=== PATIENT | male | born 1945 | race Caucasian/White ===

== ENCOUNTER → 2017-06-01 09:39 | Outpatient (CLI) | payer MEDICARE, SELFPAY ==
[2017-06-01 12:39] LABS: Hemoglobin A1c 6.2 % (4.2-6.3)
[2017-06-01 12:51] LABS: AST(SGOT) 14 U/L (15-37); Alanine Aminotransfer ALT/SGPT 28 U/L (16-61); Albumin, Serum 3.7 g/dL (3.2-5.0); Alkaline Phosphatase 67 U/L (45-117); Anion Gap 8 (5-15); BUN 24 mg/dL (7-18); BUN/Creat Ratio 22.9 RATIO (10-20); Bilirubin, Direct 0.09 mg/dL (0.00-0.30); Calcium,Total 9.1 mg/dL (8.5-10.1); Chloride 100 mmol/L (98-107); Cholesterol 153 mg/dL (200); Creatinine, Serum 1.05 mg/dL (0.70-1.30); EST Glomerular Filtration Rate 74 mL/min (>60); Est Glom Filt Rate - Afr Amer 90 mL/min (>60); Globulin 3.3 g/dL (2.2-4.2); Glucose 96 mg/dL (74-106); High Density Lipoprotein 35 mg/dL; Potassium 5.6 mmol/L (3.5-5.1); Sodium Level 132 mmol/L (136-145); Triglycerides 124 mg/dL; Very Low Density Lipoprotein 25 mg/dL (5-40)
[2017-06-01 13:16] LABS: Microalbumin,Random Urine 6.3 mg/L (NO RANGE EST.); Microalbumin:Creatinine Ratio 8.7 mg/g CRE (<30 mg/g CRE)
== END ==
PROVIDERS: Family Provider Family Medicine; PCP Family Medicine; Visit Provider Family Medicine
DX: E11.9 Type 2 diabetes mellitus without complications (principal); I10 Essential (primary) hypertension
CPT/HCPCS: 36415; 80048; 80061; 80076; 82043; 82570; 83036

== ENCOUNTER → 2017-06-11 10:03 | Outpatient (CLI) | payer MEDICARE, SELFPAY ==
[2017-06-11 10:52] LABS: Anion Gap 8 (5-15); BUN 15 mg/dL (7-18); BUN/Creat Ratio 17.7 RATIO (10-20); Calcium,Total 8.7 mg/dL (8.5-10.1); Chloride 104 mmol/L (98-107); Creatinine, Serum 0.85 mg/dL (0.70-1.30); EST Glomerular Filtration Rate 95 mL/min (>60); Est Glom Filt Rate - Afr Amer 115 mL/min (>60); Glucose 94 mg/dL (74-106); Potassium 4.3 mmol/L (3.5-5.1); Sodium Level 135 mmol/L (136-145)
== END ==
PROVIDERS: Family Provider Family Medicine; PCP Family Medicine; Visit Provider Family Medicine
DX: E87.5 Hyperkalemia (principal)
CPT/HCPCS: 36415; 80048

== ENCOUNTER → 2017-06-29 06:01 | Outpatient (CLI) | payer MEDICARE, SELFPAY ==
[2017-06-29 08:22] LABS: ALB/GLOB Ratio 1.1 RATIO (0.9-2.4); AST(SGOT) 16 U/L (15-37); Alanine Aminotransfer ALT/SGPT 23 U/L (16-61); Albumin, Serum 3.6 g/dL (3.2-5.0); Alkaline Phosphatase 63 U/L (45-117); Anion Gap 7 (5-15); BUN 19 mg/dL (7-18); BUN/Creat Ratio 20.3 RATIO (10-20); Calcium,Total 9.2 mg/dL (8.5-10.1); Chloride 106 mmol/L (98-107); Cholesterol 163 mg/dL (200); Creatinine, Serum 0.94 mg/dL (0.70-1.30); EST Glomerular Filtration Rate 85 mL/min (>60); Est Glom Filt Rate - Afr Amer 103 mL/min (>60); Globulin 3.3 g/dL (2.2-4.2); Glucose 109 mg/dL (74-106); High Density Lipoprotein 37 mg/dL; Potassium 4.6 mmol/L (3.5-5.1); Protein, Total 6.9 g/dL (6.4-8.2); Sodium Level 136 mmol/L (136-145); Thyroid Stim Hormone (TSH) 2.07 uIU/mL (0.358-3.74); Triglycerides 87 mg/dL; Very Low Density Lipoprotein 17 mg/dL (5-40)
[2017-06-29 08:37] LABS: Microalbumin,Random Urine < 5.0 mg/L (NO RANGE EST.)
[2017-06-29 08:40] LABS: Hemoglobin A1c 6.4 % (4.2-6.3)
== END ==
PROVIDERS: Family Provider Family Medicine; PCP Family Medicine; Visit Provider Internal Medicine Endocrinology, Diabetes & Metabolism
DX: E11.9 Type 2 diabetes mellitus without complications (principal); E26.9 Hyperaldosteronism, unspecified
CPT/HCPCS: 36415; 80053; 80061; 82043; 82570; 83036; 84443

== ENCOUNTER 2017-07-07 02:11 | Observation (INO) | payer MEDICARE, SELFPAY ==
[2017-07-07] VITALS (13 sets, daily range): BP systolic 122–186; BP diastolic 58–87; PULSE 54–64; RESP 12–19; TEMP 36.4–36.6; O2SAT 97–100; BMI 31.8; BMI 31.6
--- NOTE | 2017-07-07 02:39 | EKG12_ITS ---
Test Reason : REPEAT Blood Pressure : / mmHG Vent. Rate : 055 BPM Atrial Rate : 055 BPM P-R Int : 168 ms QRS Dur : 106 ms QT Int : 424 ms P-R-T Axes : 070 -12 046 degrees QTc Int : 405 ms Sinus bradycardia Septal infarct , age undetermined Abnormal ECG Confirmed by ERROL GARAY, EYAL ([id number]), book editor STEVE PLATA ([id number]) on 07/08/2017 3:34:11 PM Referred By: Romana Bartholomew Confirmed By:EYAL NORTON MD
--- NOTE | 2017-07-07 02:39 | RAD_ITS ---
STUDY: X-RAY CHEST REASON FOR EXAM: Male, 71 years old. Pain in the right rib area TECHNIQUE: One view COMPARISON: None. FINDINGS: The lungs are clear and expanded. There is no demonstrated pleural abnormality. Normal size heart. Normal mediastinum and kayla. Normal visualized pulmonary arteries. Normal visualized aortic arch and descending thoracic aorta. Marked degenerative changes of the thoracic spine Normal visualized ribs, clavicles, and shoulders. There is no demonstrated abnormality of the visualized soft tissue structures of the upper abdomen. RAD/Chest 1 View (Portable) IMPRESSION: No acute findings in the lungs. Mild degenerative changes of the thoracic spine Electronically Signed: Figueroa Willard, at 3:38 EDT Tel , Service support ,
[2017-07-07 03:14] LABS: Absolute Lymphocyte Count 2.25 X10^3/ul (0.83-4.51); Absolute Neutrophil Count 5.3 X10^3/uL (2.0-7.7); Basophil# 0.02 X10^3/uL; Basophil% 0.2 % (0-1); Eosinophil# 0.35 X10^3/uL; Hematocrit 34.8 % (40-54); Hemoglobin 11.7 g/dl (13.0-16.5); Lymphocyte # 2.25 X10^3/ul (4.0); Lymphocyte % 25.6 % (19-41); Mean Corp Hgb Conc 33.6 g/gl (32-36); Mean Corpuscular Hgb 29.7 pg (27.0-32.0); Mean Corpuscular Volume 88.3 fL (80-94); Mean Platelet Vol. 9.1 fl (6.2-12.0); Monocyte% 9.1 % (0-10); Neutrophil # 5.34 X10^3/uL (2.7-7.7); Neutrophil % 60.9 % (47-70); Platelet Count 230 K/mm3 (150-450); RBC Distribution Width CV 13.2 % (11.6-14.6); RBC Distribution Width SD 41.4 fl (35.1-43.9); Red Blood Count 3.94 M/mm3 (4.6-6.2); White Blood Count 8.8 K/mm3 (4.4-11.0)
[2017-07-07 03:15] LABS: POSITIVE COUNT NO; POSITIVE DIFFERENTIAL NO; POSITIVE MORPHOLOGY NO
--- NOTE | 2017-07-07 03:34 | EKG12_ITS ---
Test Reason : CP Blood Pressure : / mmHG Vent. Rate : 058 BPM Atrial Rate : 058 BPM P-R Int : 184 ms QRS Dur : 094 ms QT Int : 400 ms P-R-T Axes : 070 -05 044 degrees QTc Int : 392 ms Sinus bradycardia Septal infarct , age undetermined Abnormal ECG Confirmed by ERROL GARAY, EYAL ([id number]), editorial clerk STEVE PLATA ([id number]) on 07/08/2017 3:34:59 PM Referred By: Romana Bartholomew Confirmed By:EYAL NORTON MD
[2017-07-07 03:39] LABS: Anion Gap 8 (5-15); BUN 28 mg/dL (7-18); BUN/Creat Ratio 27.2 RATIO (10-20); Calcium,Total 8.3 mg/dL (8.5-10.1); Chloride 105 mmol/L (98-107); Creatinine, Serum 1.03 mg/dL (0.70-1.30); EST Glomerular Filtration Rate 76 mL/min (>60); Est Glom Filt Rate - Afr Amer 92 mL/min (>60); Estimated Creatinine Clearance 63.28 ml/min; Glucose 97 mg/dL (74-106); Potassium 4.2 mmol/L (3.5-5.1); Sodium Level 138 mmol/L (136-145)
--- NOTE | 2017-07-07 04:31 | PCM.HP.STD ---
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 He states he was working out with weights doing leg press exercise with 205lbs when he developed chest pain. This unlike his recent shortness of breath and chest discomfort while on the treadmill for five minutes did not relent with rest. By 1:00 am the pain was significantly worse 8/10 non radiating substernal pain/pressure. He reports having had a negative stress test prior to gastric bypass surgery 4-5 years ago. He had two stents placed in the LAD in 2003. He will be admitted for further cardiac evaluation. He will be NPO pending heart catheterization. 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) Allergies No Known Allergies Allergy (Verified 02/12/15 07:41) Home Medications: Ambulatory Orders Medication Instructions Recorded Carvedilol [Coreg] 12.5 mg PO BID 04/18/13 Metformin [Metformin HCl] 500 mg PO BID 04/18/13 Multivitamins,Ther W-Minerals 1 tab PO Q4H 04/18/13 [Multivitamin With Minerals] Omeprazole [Prilosec] 40 mg PO DAILY 11/11/13 Glimepiride [Amaryl] 0.5 mg PO DAILY 11/10/14 aspirin 81 mg tablet,delayed 81 mg PO QDAY 03/30/17 release losartan 100 1 tab PO QDAY 03/30/17 mg-hydrochlorothiazide 12.5 mg tablet spironolactone 50 mg tablet 50 mg PO BID 03/30/17 Surgical History: herniorrhaphy, total knee arthroplasty, tonsillectomy, - - Carpal tunnel surgery, cystoscopy, TURP Psychiatric History: No pertinent psych hx Smoking Status: Former smoker - *Family History Maternal History Items: Cancer, Diabetes, Hypertension Paternal History Items: Diabetes, Hypertension Sibling History Items: No pertinent history Review of Systems Constitutional: Denies: Chills, Fever, Weight Change HEENT: Denies: Head Aches, Sinus Congestion, Sinus Drainage Cardiovascular: Reports: Chest Pain, Chest Pressure, Chest Tightness. Denies: Palpitations Respiratory: Denies: Cough, Shortness of breath at rest, Sputum production Gastrointestinal: Denies: Abdominal Pain, Nausea, Vomiting Genitourinary: Denies: Dysuria Musculoskeletal: Denies: Joint Pain, Joint Tenderness Skin: Denies: Rash, Wounds Neurological: Denies: Numbness, Tingling, Focal weakness Psychiatric: Denies: Anxiety, Depression, Homicidal Ideations, Suicidal Ideations Hematologic/ Lymphatic: Denies: Easy Bruising, Easy Bleeding VTE Information - Inpt Only VTE Present on Admission: No VTE Mechan Device Prophylaxis: None VTE Pharm Prophylaxis ordered?: Yes Patient Problems: Active and Suspected Problems (Last Updated 03/30/17 @ 12:18 by LINDA Ho) Chest pain (Acute) - Physical Exam General: Alert, Oriented x3, Cooperative HEENT: Atraumatic, Normocephalic Neck: Supple Lungs: Clear to auscultation, Normal air movement, No rhonchi, No wheeze, No rales Cardiovascular: Normal S1, Normal S2, No murmurs, Bradycardic Abdomen: Bowel Sounds Present, Soft, Non Tender, Obese Extremities: No edema, Capillary Refill Less than 3 Seconds Skin: No rashes Musculoskeletal: No Tenderness to Palpation of Joints or Extremities Neurological: Neuro grossly intact Psych/Mental Status: Normal Affect, Appropriate Vital Signs Temp Pulse Resp BP Pulse Ox 97.5 F L 64 15 124/64 H 97 07/07/17 02:13 07/07/17 03:23 07/07/17 02:13 07/07/17 03:23 07/07/17 03:01 Oxygen Delivery Method Room Air Weight: 203 lb 7.787 oz Body Mass Index (BMI) 31.8 Finger Stick Blood Glucose 156 Laboratory Tests Past 24 Hrs 07/07/17 07/07/17 03:05 03:05 WBC 8.8 RBC 3.94 L Hgb 11.7 L Hct 34.8 L MCV 88.3 MCH 29.7 MCHC 33.6 RDW 13.2 RDW Differential 41.4 Plt Count 230 MPV 9.1 Immature Gran % (Auto) 0.200 Neut % (Auto) 60.9 Lymph % (Auto) 25.6 [place] % (Auto) 9.1 Eos % (Auto) 4.0 Baso % (Auto) 0.2 Absolute Neuts (auto) 5.3 Absolute Lymphs (auto) 2.25 Total Counted Not Reportable Sodium 138 Potassium 4.2 Chloride 105 Carbon Dioxide 25.0 Anion Gap 8 BUN 28 H Creatinine 1.03 Estim Creat Clear Calc 63.28 Est GFR (MDRD) Af Amer 92 Est GFR (MDRD) Non-Af 76 BUN/Creatinine Ratio 27.2 H Glucose 97 Calcium 8.3 L Troponin I < 0.02 Assessment/Plan Active and Suspected Problems (Last Updated 03/30/17 @ 12:18 by LINDA Ho) Chest pain (Acute) Chronic Problems (Last Updated 03/30/17 @ 12:18 by LINDA oH) Hyperlipidemia (Chronic) HTN (hypertension), benign (Chronic) CAD (coronary artery disease), [place]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
--- NOTE | 2017-07-07 04:41 | ED.VISSUMM ---
- ER Visit Summary Date of Service: 07/07/17 Chief Complaint: Chest pain History of Present Illness: The patient is a 71 M patient developed gnawing chest pain since around suppertime. Continuous. 7 out of 10. States initially right side went to the left. Pain to the back. No numbness in the arms jaw. No nausea. Mild dyspnea. States he has have exertional dyspnea over last 2 months. He works out 3 times a week. States he can go on the treadmill up to 5 minutes before coming significant short of breath needing to stop. Symptoms resolved at that time. History of LAD stent in 2003?2. He is followed by Dr. Capps. No recent formal stress test. History diabetes, hypertension. Not on cholesterol medications. Remote tobacco. Family history of dad with [place] less than 55. No PE risk factors. Physical Examination: General: Alert and oriented ?3, no acute distress HEENT: Normocephalic, atraumatic. Moist mucosa membranes Neck: supple, nontender. Cardiovascular: Regular rate and rhythm, no murmurs Respiratory: Normal breath sounds, symmetric, no distress Abdomen: Soft, nontender, nondistended Extremities: Nontender, no edema, pulses intact ?4 Neuro: no focal neurological deficits. Test Results: EKG: Sinus rate of 58, no ST or T-wave changes. EKG #2 unchanged. Chest x-ray negative. Troponin negative. Emergency Department Course and Treatment: Patient took aspirin at home prior to arrival. Due to symptoms given 2 nitro, per nursing symptoms worsen. Repeat EKG is unchanged. Given morphine 4 mg. Cardiac workup was negative. History reporting on treadmill with symptoms increasing after 5 minutes concerning for anginal symptoms. No recent stress test. Heart scores a 4. SOHA scores of 4. Patient history spoke with hospitalist, Dr. Ayon for evaluation and admission. Treatment Plan: [] Disposition: Admission Impression: 1. Chest pain 2. Angina This note was generated with [employer] dictation software. It may contain incorrect words, spelling, and punctuation that were not noted in review of the chart prior to signing ED Disposition - Plan for ED Patient: Disposition: Acute Care Hospital [facility] Chief Complaint: Chest Pain Diagnosis: Angina effort, Chest pain Referrals: Hilda Angulo MD [Primary Care Provider] -
--- NOTE | 2017-07-07 04:42 | HP.PCM_ITS ---
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 He states he was working out with weights doing leg press exercise with 205lbs when he developed chest pain. This unlike his recent shortness of breath and chest discomfort while on the treadmill for five minutes did not relent with rest. By 1:00 am the pain was significantly worse 8/10 non radiating substernal pain/pressure. He reports having had a negative stress test prior to gastric bypass surgery 4-5 years ago. He had two stents placed in the LAD in 2003. He will be admitted for further cardiac evaluation. He will be NPO pending heart catheterization. 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) Allergies No Known Allergies Allergy (Verified 02/12/15 07:41) Home Medications: Ambulatory Orders Medication Instructions Recorded Carvedilol [Coreg] 12.5 mg PO BID 04/18/13 Metformin [Metformin HCl] 500 mg PO BID 04/18/13 Multivitamins,Ther W-Minerals 1 tab PO Q4H 04/18/13 [Multivitamin With Minerals] Omeprazole [Prilosec] 40 mg PO DAILY 11/11/13 Glimepiride [Amaryl] 0.5 mg PO DAILY 11/10/14 aspirin 81 mg tablet,delayed 81 mg PO QDAY 03/30/17 release losartan 100 1 tab PO QDAY 03/30/17 mg-hydrochlorothiazide 12.5 mg tablet spironolactone 50 mg tablet 50 mg PO BID 03/30/17 Surgical History: herniorrhaphy, total knee arthroplasty, tonsillectomy, - - Carpal tunnel surgery, cystoscopy, TURP Psychiatric History: No pertinent psych hx Smoking Status: Former smoker - *Family History Maternal History Items: Cancer, Diabetes, Hypertension Paternal History Items: Diabetes, Hypertension Sibling History Items: No pertinent history Review of Systems Constitutional: Denies: Chills, Fever, Weight Change HEENT: Denies: Head Aches, Sinus Congestion, Sinus Drainage Cardiovascular: Reports: Chest Pain, Chest Pressure, Chest Tightness. Denies: Palpitations Respiratory: Denies: Cough, Shortness of breath at rest, Sputum production Gastrointestinal: Denies: Abdominal Pain, Nausea, Vomiting Genitourinary: Denies: Dysuria Musculoskeletal: Denies: Joint Pain, Joint Tenderness Skin: Denies: Rash, Wounds Neurological: Denies: Numbness, Tingling, Focal weakness Psychiatric: Denies: Anxiety, Depression, Homicidal Ideations, Suicidal Ideations Hematologic/ Lymphatic: Denies: Easy Bruising, Easy Bleeding VTE Information - Inpt Only VTE Present on Admission: No VTE Mechan Device Prophylaxis: None VTE Pharm Prophylaxis ordered?: Yes Patient Problems: Active and Suspected Problems (Last Updated 03/30/17 @ 12:18 by LINDA Ho) Chest pain (Acute) - Physical Exam General: Alert, Oriented x3, Cooperative HEENT: Atraumatic, Normocephalic Neck: Supple Lungs: Clear to auscultation, Normal air movement, No rhonchi, No wheeze, No rales Cardiovascular: Normal S1, Normal S2, No murmurs, Bradycardic Abdomen: Bowel Sounds Present, Soft, Non Tender, Obese Extremities: No edema, Capillary Refill Less than 3 Seconds Skin: No rashes Musculoskeletal: No Tenderness to Palpation of Joints or Extremities Neurological: Neuro grossly intact Psych/Mental Status: Normal Affect, Appropriate Vital Signs Temp Pulse Resp BP Pulse Ox 97.5 F L 64 15 124/64 H 97 07/07/17 02:13 07/07/17 03:23 07/07/17 02:13 07/07/17 03:23 07/07/17 03:01 Oxygen Delivery Method Room Air Weight: 203 lb 7.787 oz Body Mass Index (BMI) 31.8 Finger Stick Blood Glucose 156 Laboratory Tests Past 24 Hrs 07/07/17 07/07/17 03:05 03:05 WBC 8.8 RBC 3.94 L Hgb 11.7 L Hct 34.8 L MCV 88.3 MCH 29.7 MCHC 33.6 RDW 13.2 RDW Differential 41.4 Plt Count 230 MPV 9.1 Immature Gran % (Auto) 0.200 Neut % (Auto) 60.9 Lymph % (Auto) 25.6 [place] % (Auto) 9.1 Eos % (Auto) 4.0 Baso % (Auto) 0.2 Absolute Neuts (auto) 5.3 Absolute Lymphs (auto) 2.25 Total Counted Not Reportable Sodium 138 Potassium 4.2 Chloride 105 Carbon Dioxide 25.0 Anion Gap 8 BUN 28 H Creatinine 1.03 Estim Creat Clear Calc 63.28 Est GFR (MDRD) Af Amer 92 Est GFR (MDRD) Non-Af 76 BUN/Creatinine Ratio 27.2 H Glucose 97 Calcium 8.3 L Troponin I < 0.02 Assessment/Plan Active and Suspected Problems (Last Updated 03/30/17 @ 12:18 by LINDA Ho) Chest pain (Acute) Chronic Problems (Last Updated 03/30/17 @ 12:18 by LINDA Ho) Hyperlipidemia (Chronic) HTN (hypertension), benign (Chronic) CAD (coronary artery disease), [place]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
--- NOTE | 2017-07-07 04:44 | ED.DCSUM_ITS ---
- ER Visit Summary Date of Service: 07/07/17 Chief Complaint: Chest pain History of Present Illness: The patient is a 71 M patient developed gnawing chest pain since around suppertime. Continuous. 7 out of 10. States initially right side went to the left. Pain to the back. No numbness in the arms jaw. No nausea. Mild dyspnea. States he has have exertional dyspnea over last 2 months. He works out 3 times a week. States he can go on the treadmill up to 5 minutes before coming significant short of breath needing to stop. Symptoms resolved at that time. History of LAD stent in 2003?2. He is followed by Dr. Capps. No recent formal stress test. History diabetes, hypertension. Not on cholesterol medications. Remote tobacco. Family history of dad with [place] less than 55. No PE risk factors. Physical Examination: General: Alert and oriented ?3, no acute distress HEENT: Normocephalic, atraumatic. Moist mucosa membranes Neck: supple, nontender. Cardiovascular: Regular rate and rhythm, no murmurs Respiratory: Normal breath sounds, symmetric, no distress Abdomen: Soft, nontender, nondistended Extremities: Nontender, no edema, pulses intact ?4 Neuro: no focal neurological deficits. Test Results: EKG: Sinus rate of 58, no ST or T-wave changes. EKG #2 unchanged. Chest x-ray negative. Troponin negative. Emergency Department Course and Treatment: Patient took aspirin at home prior to arrival. Due to symptoms given 2 nitro, per nursing symptoms worsen. Repeat EKG is unchanged. Given morphine 4 mg. Cardiac workup was negative. History reporting on treadmill with symptoms increasing after 5 minutes concerning for anginal symptoms. No recent stress test. Heart scores a 4. SOHA scores of 4. Patient history spoke with hospitalist, Dr. Ayon for evaluation and admission. Treatment Plan: [] Disposition: Admission Impression: 1. Chest pain 2. Angina This note was generated with [employer] dictation software. It may contain incorrect words, spelling, and punctuation that were not noted in review of the chart prior to signing ED Disposition - Plan for ED Patient: Disposition: Acute Care Hospital [facility] Chief Complaint: Chest Pain Diagnosis: Angina effort, Chest pain Referrals: Hilda Angulo MD [Primary Care Provider] -
[2017-07-07] MEDS: Aspirin E.C. 81 MG Tablet PO (06:38)
[2017-07-07] MEDS: Clopidogrel Bisulfate 300 MG Tablet PO (06:38)
[2017-07-07 06:56] LABS: Bedside Glucose 145 mg/dL (70-110)
[2017-07-07 07:07] LABS: Absolute Lymphocyte Count 1.57 X10^3/ul (0.83-4.51); Absolute Neutrophil Count 6.9 X10^3/uL (2.0-7.7); Basophil# 0.02 X10^3/uL; Basophil% 0.2 % (0-1); Eosinophil# 0.13 X10^3/uL; Eosinophils% 1.4 % (0-5); Hematocrit 37.1 % (40-54); Hemoglobin 12.4 g/dl (13.0-16.5); Lymphocyte # 1.57 X10^3/ul (4.0); Lymphocyte % 17.1 % (19-41); Mean Corp Hgb Conc 33.4 g/gl (32-36); Mean Corpuscular Hgb 29.5 pg (27.0-32.0); Mean Corpuscular Volume 88.3 fL (80-94); Mean Platelet Vol. 9.7 fl (6.2-12.0); Monocyte# 0.58 X10^3/uL; Monocyte% 6.3 % (0-10); Neutrophil # 6.86 X10^3/uL (2.7-7.7); Neutrophil % 74.9 % (47-70); Platelet Count 236 K/mm3 (150-450); RBC Distribution Width CV 13.3 % (11.6-14.6); RBC Distribution Width SD 42.4 fl (35.1-43.9); White Blood Count 9.2 K/mm3 (4.4-11.0)
[2017-07-07 07:11] LABS: POSITIVE COUNT NO; POSITIVE DIFFERENTIAL NO; POSITIVE MORPHOLOGY NO
[2017-07-07 07:21] LABS: International Normalized Ratio 1.1; Prothrombin Time (Protime)PT. 13.9 SECONDS (11.7-14.9)
[2017-07-07 07:22] LABS: Partial Thromboplast Time 28.9 Seconds (24.1-36.2)
[2017-07-07 07:23] LABS: ALB/GLOB Ratio 1.2 RATIO (0.9-2.4); AST(SGOT) 60 U/L (15-37); Alanine Aminotransfer ALT/SGPT 47 U/L (16-61); Albumin, Serum 3.7 g/dL (3.2-5.0); Alkaline Phosphatase 74 U/L (45-117); Anion Gap 8 (5-15); BUN 25 mg/dL (7-18); BUN/Creat Ratio 24.5 RATIO (10-20); Calcium,Total 8.8 mg/dL (8.5-10.1); Chloride 103 mmol/L (98-107); Cholesterol 158 mg/dL (200); Creatinine, Serum 1.02 mg/dL (0.70-1.30); EST Glomerular Filtration Rate 77 mL/min (>60); Est Glom Filt Rate - Afr Amer 93 mL/min (>60); Glucose 131 mg/dL (74-106); High Density Lipoprotein 39 mg/dL; Potassium 4.7 mmol/L (3.5-5.1); Protein, Total 6.7 g/dL (6.4-8.2); Sodium Level 136 mmol/L (136-145); Triglycerides 47 mg/dL; Very Low Density Lipoprotein 9 mg/dL (5-40)
--- NOTE | 2017-07-07 08:28 | PCM.CONS.C ---
Reason for Consult Date of Consultation: 07/07/17 Reason for Consultation: Chest pain. History of Present Illness: The patient is a 71 year old M with a history of gastric bypass surgery and known coronary artery disease status post left anterior descending artery stents placed remotely. He apparently has been fairly active and exercising on the treadmill about 3 times a week. He says that yesterday he developed right upper quadrant and lumbar discomfort and was fatigue. He specifically did not have any chest discomfort. However due to the persistence of the above he presented to the emergency room he was evaluated and seen by the hospitalist and he thought that this may be an anginal equivalent. On further questioning however he has had no chest pain whatsoever. He has had no dizziness no diaphoresis no near syncope or syncope. He does get somewhat short of breath. He was admitted to the telemetry unit EKG was noted to be normal and cardiac enzymes were also noted to be normal. [] Past Medical History Allergies/Adverse Reactions: Allergies No Known Allergies Allergy (Verified 02/12/15 07:41) Home Medications: Ambulatory Orders Medication Instructions Recorded Carvedilol [Coreg] 12.5 mg PO BID 04/18/13 Metformin [Metformin HCl] 500 mg PO BID 04/18/13 Multivitamins,Ther W-Minerals 1 tab PO Q4H 04/18/13 [Multivitamin With Minerals] Omeprazole [Prilosec] 40 mg PO DAILY 11/11/13 Glimepiride [Amaryl] 0.5 mg PO DAILY 11/10/14 aspirin 81 mg tablet,delayed 81 mg PO QDAY 03/30/17 release losartan 100 1 tab PO QDAY 03/30/17 mg-hydrochlorothiazide 12.5 mg tablet spironolactone 50 mg tablet 50 mg PO BID 03/30/17 Past Medical History (Chronic Problems): Chronic Problems (Last Updated 03/30/17 @ 12:18 by LINDA Ho) Hyperlipidemia (Chronic) HTN (hypertension), benign (Chronic) CAD (coronary artery disease), [place]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) Surgical History: herniorrhaphy, total knee arthroplasty, tonsillectomy, - - Carpal tunnel surgery, cystoscopy, TURP Psychiatric History: No pertinent psych hx - *Family History Maternal Family History: Family History (Last Updated 03/30/17 @ 12:09 by Lashon Padilla) Father Myocardial infarction Mother Hypertension History Items: Cancer, Diabetes, Hypertension Paternal Family History: Family History (Last Updated 03/30/17 @ 12:09 by Lashon Padilla) Father Myocardial infarction Mother Hypertension History Items: Diabetes, Hypertension Sibling Family History: Family History (Last Updated 03/30/17 @ 12:09 by Lashon Padilla) Father Myocardial infarction Mother Hypertension History Items: No pertinent history Smoking Status: Former smoker Alcohol: None Drugs: None Review of Systems - Review of Systems General: Denies: Fever, Night Sweats, Fatigue Cardiovascular: Denies: Chest Discomfort, Shortness of Breath, Orthopnea, PND, Peripheral Edema, Palpitations, Lightheadedness, Dizziness, Near Syncope, Syncope Respiratory: Denies: Cough, Sputum Production, Hemoptysis Gastrointestinal: Reports: Epigastric Discomfort, Abdominal Discomfort. Denies: Hematemesis, Hematochezia, Melena Genitourinary: Denies: Dysuria, Hematuria Skin: Denies: Rash Subjectve: Pleasant gentleman in no apparent distress Objective: Vital Signs Temp Pulse Resp BP Pulse Ox 97.6 F L 64 16 122/62 H 100 07/07/17 05:47 07/07/17 07:28 07/07/17 05:47 07/07/17 05:47 07/07/17 05:47 Oxygen Flow Rate (L/min) 2 Oxygen Delivery Method Nasal Cannula Weight: 201 lb 15.095 oz Body Mass Index (BMI) 31.6 General: Awake, Alert, Oriented x 3 HEENT: PERRL, EOMI, Sclera Non Icteric Neck: Supple, Good ROM, No Lymph Node Enlargement Lungs: Clear to auscultation Cardiovascular: Regular Rhythm, Normal S1, Normal S2, No Murmurs, No Rubs, No Gallops Vascular: No Carotid Bruits, Normal Femoral Pulses, Normal Radial Pulses, Normal Dorsalis Pedal Pulse, Normal Posterior Tibial Pulses Abdomen: Bowel Sounds Present, Soft, Non Tender, No HSM, No Organomegaly Extremities: No Cyanosis, No Clubbing, No edema Neurological: No Focal Motor or Sensory Deficit 07/07/17 06:30: WBC 9.2, RBC 4.20 L, Hgb 12.4 L, Hct 37.1 L, MCV 88.3, MCH 29.5, MCHC 33.4, RDW 13.3, RDW Differential 42.4, Plt Count 236, MPV 9.7, Immature Gran % (Auto) 0.100, Neut % (Auto) 74.9 H, Lymph % (Auto) 17.1 L, [place] % (Auto) 6.3, Eos % (Auto) 1.4, Baso % (Auto) 0.2, Absolute Neuts (auto) 6.9, Total Counted Not Reportable 07/07/17 06:30: Sodium 136, Potassium 4.7, Chloride 103, Carbon Dioxide 25.0, Anion Gap 8, BUN 25 H, Creatinine 1.02, Est GFR (MDRD) Af Amer 93, Est GFR (MDRD) Non-Af 77, BUN/Creatinine Ratio 24.5 H, Glucose 131 H, Calcium 8.8, Total Bilirubin 0.50, Triglycerides 47, Cholesterol 158, LDL Cholesterol 110, VLDL Cholesterol 9, HDL Cholesterol 39 L 07/07/17 06:30: Troponin I < 0.02 07/07/17 06:30: PT 13.9, INR 1.1, APTT 28.9 Rhythm: EKG: Normal sinus rhythm Assessment/Plan 1. Epigastric and abdominal discomfort in a patient with known coronary artery disease. He presents with atypical symptoms and has no EKG changes or troponin elevation. My recommendation at this time would be for him to undergo an exercise stress test to assess for any evidence of ischemia. Depending on the findings further recommendations will then be made. 2. Coronary artery disease The above appears to be stable and at this time I do not see an indication to proceed with a cardiac catheterization. This be further elucidated by the stress testing. 3. Hypertension His blood pressure appears to be under good control on the current medical therapy with the ARB as well as the beta-jyoti and this will be continued. 4. Hyperlipidemia His recent lipid profile appears to be fairly stable and no changes will be made. Thank you for allowing me to participate in the care of your patient. Please don't hesitate to call if any issues arise Addendum at 12:37 PM. Exercise stress test was performed today and the patient exercised 6-1/2 minutes with no evidence of ischemia or chest pain or abdominal pain. On the basis of this I would suggest that we continue to treat him with medications he can be discharged and followed up as an outpatient.
[2017-07-07] MEDS: 0.9% NaCl Peripheral Flush Adult/Peds IV ×2 (09:37→12:19)
--- NOTE | 2017-07-07 12:37 | STRESSREP_ITS ---
Stress Test Report Exercise myocardial perfusion stress test. 71-year-old man with a history of atypical chest pain. Stress protocol: Resting EKG demonstrates sinus bradycardia with a rate of 53 bpm. Normal intervals noted. Resting blood pressure is 164/72 mmHg. The patient exercised according to the regular Los protocol for total duration of 6 minutes and 30 seconds the maximum heart rate attained was 134 bpm which was 88% of maximum predicted heart rate the maximum workload attained was 7.7 metabolic equivalents. At rest there were no ST or T-wave changes noted suggest ischemia at peak exercise upsloping ST changes only were noted we did not meet the criteria for ischemia. No clinical angina was noted the test was terminated due to shortness of breath. Myocardial perfusion protocol. 11.5 mCi of technetium 99m sestamibi was injected at rest. The patient exercised according to Los protocol for 6 minutes and 30 seconds attaining 88 % of maximum predicted heart rate at peak exercise 34.2 mCi of technetium 99m sestamibi was injected. Stress images were obtained stress and rest images were reconstructed and compared in the short axis vertical long horizontal long axis. Gated images were also obtained. Perfusion SPECT analysis: Review of the stress images demonstrate normal uptake of tracer noted in all areas of the myocardium. There is mildly reduced perfusion noted in the mid inferior wall. On the stress images. The resting images demonstrate a similar pattern with insignificant changes. No obvious areas of reversibility are noted suggest ischemia. No previous infarct is noted. Gated SPECT analysis: The gated ejection fraction is 75%. Conclusion: Normal exercise myocardial perfusion stress test at a moderate workload. Preserved ejection fraction. Good functional aerobic capacity.
--- NOTE | 2017-07-07 13:24 | PCM.DC ---
- Discharge Diagnoses Current Active Problems: Current Active and Chronic Problems (Last Updated 03/30/17 @ 12:18 by LINDA Ho) Chest pain (Acute) Angina effort (Acute) You will use the following diet at home:: Calorie/Carbohydrate Controlled (specify 1200, 1400, etc) - 1800 deanna / day, Cardiac Your food should be the consistency of: Regular Your liquids should be the consistency of: Regular/Thin Discharge Activity: Return to Normal Activity Allergies/Adverse Reactions: Allergies No Known Allergies Allergy (Verified 02/12/15 07:41) Medications to take at Discharge Carvedilol [Coreg (Beta Jeannine)] 12.5 mg PO BID 04/18/13 Metformin [Metformin HCl] 500 mg PO BID 04/18/13 Multivitamins,Ther W-Minerals [Multivitamin With Minerals] 1 tab PO Q4H 04/18/13 Omeprazole [Prilosec] 40 mg PO DAILY 11/11/13 Glimepiride [Amaryl] 0.5 mg PO DAILY 11/10/14 aspirin 81 mg tablet,delayed release 81 mg PO QDAY 03/30/17 losartan 100 mg-hydrochlorothiazide 12.5 mg tablet 1 tab PO QDAY 03/30/17 spironolactone 50 mg tablet 50 mg PO BID 03/30/17 Primary Care Physician: Hilda Angulo MD [Primary Care Provider] - Please follow up with your Primary Care Physician in: 1-2 weeks Proposed Discharge Date: 07/07/17
--- NOTE | 2017-07-07 13:26 | PCM.DC.SUM ---
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) Hospital Course and Treatment Imaging Results: 07/07/17 07:47 Nuclear Stress Test - Treadmil [NM] Routine Consults: [facility] - cardiology Operations: None Procedures: Stress test Summary of Care Provided: Physical exam on day of discharge: General: Resting comfortably NAD Psych: A/Ox3 normal affect HEENT: PEARRLA AT NC Neck: Supple NT CV: RRR no m/t/r/g/h Resp: CTA Abd: [id number] Soft NT no guarding or rigidity, RUQ tendnerness, Right posterior flank tenderness along ribs Ext: DP2+= no edema Skin: W/D normal turgor Lymph/Heme: No active bleeding or adenopathy Neuro: CN2-12 intact Hospital course: The patient is a 71 year old M who presented to the ER with epigastric RUQ pain / lower right sided chest pain and substernal chest pain. He had a hx of CAD with prior CABG, HTN, HLD, DMt2, and obesity s/p gastric bypass. The patient was lifting weights heavily the day the chest pain started, after lifting he was sitting at home and developed the pain which was unrelenting 8/10. He came to the ER and had negative EKG, negative troponin, and negative CXR. Cardiology was consulted given his underlying CAD. He was maintained on tele, troponin cycled, EKG repeated, and a stress test ordered for the following morning. His BP was poorly controlled but improved with his normal agents. Stress test and further workup was negative. He was discharged home in stable condition and advised to follow up with his PCP. His pain was felt to be musculoskeletal and I advised PRN tylenol and stretching exercises at this time. [] This patient was seen by Ronny Adams PA-C under the supervision of Doctor Aaron. Discharge Diet: Low fat/ Low Cholesterol, 1800 Calorie Control Diet, 2000 mg Sodium Diet Discharge Activity: Return to Normal Activity Home Medications: Medications to take at Discharge Carvedilol [Coreg (Beta Jeannine)] 12.5 mg PO BID 04/18/13 Metformin [Metformin HCl] 500 mg PO BID 04/18/13 Multivitamins,Ther W-Minerals [Multivitamin With Minerals] 1 tab PO Q4H 04/18/13 Omeprazole [Prilosec] 40 mg PO DAILY 11/11/13 Glimepiride [Amaryl] 0.5 mg PO DAILY 11/10/14 aspirin 81 mg tablet,delayed release 81 mg PO QDAY 03/30/17 losartan 100 mg-hydrochlorothiazide 12.5 mg tablet 1 tab PO QDAY 03/30/17 spironolactone 50 mg tablet 50 mg PO BID 03/30/17 Primary Care Physician: Hilda Angulo MD [Primary Care Provider] - Please follow up with your Primary Care Physician in: 1-2 weeks Disposition: Home Minutes spent on discharge:: 35 Patient Condition:: Stable Meaningful Use Info Meaningful Use Diagnoses (Choose all that apply): None applicable <Miguel Walker - Last Filed: 07/07/17 14:29> Discharge Date and Diagnosis - Secondary Discharge Diagnosis Chronic Problems (Last Updated 03/30/17 @ 12:18 by LINDA Ho) Hyperlipidemia (Chronic) HTN (hypertension), benign (Chronic) CAD (coronary artery disease), hoh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 I have independently interviewed and examined the patient and reviewed pertinent history, examination findings, laboratory and plan of management. I have reviewed the note and agree with the documented findings with the few additional points. In brief, patient is admitted for epigastric right upper quadrant and right-sided chest pain after heavy weightlifting and bench press exercises. LFT shows elevated AST that further corroborates with muscular nature of pain. Patient was advised outpatient NSAID, ibuprofen as needed 400 mg 3 times daily follow with PCP. Stress test negative for stress-induced ischemia. No previous infarct I have discussed my assessment with Ronny MCKEON and orders have been reviewed. [] Code Visit OBSV E&M: 12980 Observ/hosp same date L3
--- NOTE | 2017-07-07 13:32 | DS.PCM_ITS ---
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) Hospital Course and Treatment Imaging Results: 07/07/17 07:47 Nuclear Stress Test - Treadmil [NM] Routine Consults: [facility] - cardiology Operations: None Procedures: Stress test Summary of Care Provided: Physical exam on day of discharge: General: Resting comfortably NAD Psych: A/Ox3 normal affect HEENT: PEARRLA AT NC Neck: Supple NT CV: RRR no m/t/r/g/h Resp: CTA Abd: [id number] Soft NT no guarding or rigidity, RUQ tendnerness, Right posterior flank tenderness along ribs Ext: DP2+= no edema Skin: W/D normal turgor Lymph/Heme: No active bleeding or adenopathy Neuro: CN2-12 intact Hospital course: The patient is a 71 year old M who presented to the ER with epigastric RUQ pain / lower right sided chest pain and substernal chest pain. He had a hx of CAD with prior CABG, HTN, HLD, DMt2, and obesity s/p gastric bypass. The patient was lifting weights heavily the day the chest pain started, after lifting he was sitting at home and developed the pain which was unrelenting 8/10. He came to the ER and had negative EKG, negative troponin, and negative CXR. Cardiology was consulted given his underlying CAD. He was maintained on tele, troponin cycled, EKG repeated, and a stress test ordered for the following morning. His BP was poorly controlled but improved with his normal agents. Stress test and further workup was negative. He was discharged home in stable condition and advised to follow up with his PCP. His pain was felt to be musculoskeletal and I advised PRN tylenol and stretching exercises at this time. [] This patient was seen by Ronny Adams PA-C under the supervision of Doctor Aaron. Discharge Diet: Low fat/ Low Cholesterol, 1800 Calorie Control Diet, 2000 mg Sodium Diet Discharge Activity: Return to Normal Activity Home Medications: Medications to take at Discharge Carvedilol [Coreg (Beta Ejannine)] 12.5 mg PO BID 04/18/13 Metformin [Metformin HCl] 500 mg PO BID 04/18/13 Multivitamins,Ther W-Minerals [Multivitamin With Minerals] 1 tab PO Q4H Omeprazole [Prilosec] 40 mg PO DAILY 11/11/13 Glimepiride [Amaryl] 0.5 mg PO DAILY 11/10/14 aspirin 81 mg tablet,delayed release 81 mg PO QDAY 03/30/17 losartan 100 mg-hydrochlorothiazide 12.5 mg tablet 1 tab PO QDAY 03/30/17 spironolactone 50 mg tablet 50 mg PO BID 03/30/17 Primary Care Physician: Hilda Angulo MD [Primary Care Provider] - Please follow up with your Primary Care Physician in: 1-2 weeks Disposition: Home Minutes spent on discharge:: 35 Patient Condition:: Stable Meaningful Use Info Meaningful Use Diagnoses (Choose all that apply): None applicable <Miguel Walker - Last Filed: 07/07/17 14:29> Discharge Date and Diagnosis - Secondary Discharge Diagnosis Chronic Problems (Last Updated 03/30/17 @ 12:18 by LINDA Ho) Hyperlipidemia (Chronic) HTN (hypertension), benign (Chronic) CAD (coronary artery disease), [place]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 I have independently interviewed and examined the patient and reviewed pertinent history, examination findings, laboratory and plan of management. I have reviewed the note and agree with the documented findings with the few additional points. In brief, patient is admitted for epigastric right upper quadrant and right- sided chest pain after heavy weightlifting and bench press exercises. LFT shows elevated AST that further corroborates with muscular nature of pain. Patient was advised outpatient NSAID, ibuprofen as needed 400 mg 3 times daily follow with PCP. Stress test negative for stress-induced ischemia. No previous infarct I have discussed my assessment with Ronny MCKEON and orders have been reviewed. [] Code Visit OBSV E&M: 08573 Observ/hosp same date L3
== END 2017-07-07 13:24 | disposition home or self-care (01) ==
LOC: ED 04:44 → PCU 05:21
PROVIDERS: Admitting Provider Family Medicine; Emergency Provider Emergency Medicine; Family Provider Family Medicine; PCP Family Medicine; Visit Provider Internal Medicine
DX: R07.89 Other chest pain (principal); I25.10 Atherosclerotic heart disease of native coronary artery without angina pectoris; E78.5 Hyperlipidemia, unspecified; E66.9 Obesity, unspecified; E11.9 Type 2 diabetes mellitus without complications; I10 Essential (primary) hypertension; Z95.1 Presence of aortocoronary bypass graft; Z68.31 Body mass index [BMI] 31.0-31.9, adult; Z71.3 Dietary counseling and surveillance; Z98.84 Bariatric surgery status; Z79.899 Other long term (current) drug therapy; Z87.891 Personal history of nicotine dependence
CPT/HCPCS: 36415; 71045; 78452; 80048; 80053; 80061; 82962; 84484; 85025; 85610; 85730; 93005; 93017; 96374; 96376; 99218; 99285; A9500; A4216; G0378